=== PATIENT | female | born 2000 | race Caucasian/White ===

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

== ENCOUNTER 2021-06-15 11:29 | Day surgery (SDC) | payer MEDICAID, OTHER ==
[2021-06-13 16:08] VITALS: BMI 39.9
[~2021-06-15 11:29] MED LIST: LACTATED RINGERS 1,000 ML IV SCH; LIDOCAINE 1% (10MG/ML) FOR IV START INTRADERMA PRN
[2021-06-15 12:04] VITALS: TEMP 97.3
[2021-06-15] MEDS ORDERED: PROPOFOL 10 MG/ML 20 ML VIAL IV ONE (12:23)
[2021-06-15] MEDS ORDERED: LIDOCAINE 1% INJ 10MG/ML (20 ML MDV) ONE (12:23)
--- NOTE | 2021-06-15 12:33 | P.PCN ---
Date of Procedure: 06/15/21 Procedure(s) Performed: BRIEF HISTORY: Patient is a 21-year-old, pleasant, white female scheduled for an upper endoscopy as a part of evaluation of chronic persistent nausea for the last 18 months duration. She tried Prilosec 20 mg daily with no help. Recently was on Zofran as well as Phenergan with no help. She is hence scheduled for an upper endoscopy to evaluate further. PROCEDURE PERFORMED: Esophagogastroduodenoscopy with biopsy. PREOPERATIVE DIAGNOSIS: Chronic persistent nausea of 1-1/2 years duration. IV sedation per anesthesia. PROCEDURE: After informed consent was obtained, the patient was brought into the endoscopy unit. IV sedation was administered by Anesthesia under continuous monitoring. Initially the Olympus GIF-140 video endoscope was inserted into the mouth. Esophagus intubated without any difficulty. It was gradually advanced into the stomach and duodenum and carefully examined. The bulb and the second part of the duodenum appeared normal. Biopsies were done from the duodenum to rule out celiac disease. The scope at this time was withdrawn to the stomach, adequately insufflated with air, and upon careful examination, mucosa of the antrum, had erosions and biopsies were done from this area. The body, cardia and the fundus appeared normal. The scope was then withdrawn into the esophagus. The GE junction was located at 39 cm from the incisors. The esophagus appeared normal. There were no erosions or ulcerations seen and biopsies were done from the distal esophagus and the patient tolerated the procedure well. IMPRESSION: 1. Mild erosive antral gastritis. 2. No evidence of esophagitis or peptic ulcer disease. RECOMMENDATIONS: The findings of this examination were discussed with the patient well as her family. She was advised to follow with the biopsy results. In the meantime I suggested that she alternates Zofran with Phenergan and see if this helps with the nausea. She'll be seen in office in one month..
[2021-06-15 13:12] VITALS: BP 110/71; PULSE 67; RESP 16
== END 2021-06-15 13:36 | disposition home or self-care (01) ==
LOC: ORWHC2ENDO 11:29
PROVIDERS: ATTEND Internal Medicine Gastroenterology
DX: D72.820 Lymphocytosis (symptomatic) (principal); K29.50 Unspecified chronic gastritis without bleeding; F32.A Depression, unspecified; Z98.890 Other specified postprocedural states; Z79.899 Other long term (current) drug therapy
CPT/HCPCS: 81025; 88305; 43239; J2001; J2704

== ENCOUNTER 2021-08-29 13:16 | Emergency (ER) | payer MEDICAID, OTHER ==
[2021-08-29] MEDS ORDERED: dexAMETHasone 2 MG TAB PO STA (16:12)
[2021-08-29] MEDS ORDERED: FAMOTIDINE 20 MG TAB PO STA (16:12)
--- NOTE | 2021-08-29 16:17 | ED ---
General Adult HPI - General Chief complaint: Allergic Reaction Stated complaint: Allergic Reaction, EpiPen Used Time Seen by Provider: 08/29/21 16:00 Source: patient, RN notes reviewed, old records reviewed Mode of arrival: ambulatory Limitations: no limitations - History of Present Illness Initial comments: Patient is a 21-year-old female who presents emergency department over concern for an ALLERGIC reaction. She has a known ALLERGY to shellfish. States that while she was at work, she was in the same room shellfish and she began having a tingling and numb throat. She spoke with her boss and used one another EpiPen there. She took Benadryl. Presents emergency department for further evaluation. Currently is asymptomatic. Denied any nausea, vomiting, wheezing. Does have history of asthma. Denies any chest pain, shortness of breath, difficulty with swallowing or breathing at this time. Denies any fevers. On my evaluation, is been approximately 3 hours since onset of symptoms. I evaluated the patient when she was placed in a room. - Related Data Home Medications Medication Instructions Recorded Confirmed FLUoxetine HCL [PROzac] 20 mg PO HS 05/23/21 06/15/21 Promethazine HCl 12.5 mg PO BID PRN 05/23/21 06/15/21 Previous Rx's Medication Instructions Recorded EPINEPHrine (Auto Inject) [Epipen] 0.3 mg IM ONCE PRN #1 each 08/29/21 diphenhydrAMINE [Benadryl] 25 mg PO DAILY PRN 14 Days #14 08/29/21 capsule Allergies Allergy/AdvReac Type Severity Reaction Status Date / Time bee venom protein (honey bee) Allergy swelling,scratchy Verified 08/29/21 14:02 throat tree nut [Nut] Allergy scratchy Verified 08/29/21 14:02 throat seafood Allergy Unknown Uncoded 08/29/21 14:02 Review of Systems ROS Statement: Those systems with pertinent positive or pertinent negative responses have been documented in the HPI. Review of Systems: CONST: Denies fever EYES: Denies blurry vision ENT: Denies nasal congestion C/V: Denies Chest pain RESP: Denies shortness of breath GI: Denies abdominal pain : Denies dysuria SKIN: Denies rash. MSK: Denies joint pain. NEURO: Denies headache ROS Other: All systems not noted in ROS Statement are negative. Past Medical History Past Medical History: No Reported History History of Any Multi-Drug Resistant Organisms: MRSA Date of last positivie culture/infection: 05/14/17 MDRO Source:: RIGHT AXILLA Past Surgical History: Adenoidectomy, Tonsillectomy Past Anesthesia/Blood Transfusion Reactions: No Reported Reaction Past Psychological History: Anxiety Smoking Status: Current every day smoker Past Alcohol Use History: None Reported Past Drug Use History: None Reported General Exam - General Exam Comments Initial Comments: General: Appears in no acute distress. HEAD: Normal with no signs of head trauma. EYES: PERRLA, EOMI, conjunctiva normal, no discharge. ENT: Hearing grossly intact, normal oropharynx. No stridor. No intraoral swelling. Uvula is midline and within normal limits. No tongue swelling. RESPIRATORY: Clear breath sounds bilaterally. No wheezes, rales, or rhonchi. No hypoxia. No increased work of breathing. C/V: Regular rate and rhythm. S1 and S2 auscultated, no edema, peripheral pulses 2+ and intact throughout ABD: Abd is soft, nontender, nondistended EXT: Normal range of motion, no obvious deformity SKIN: No rashes or lesions observed on exposed skin. NEURO: Alert and oriented 4. No focal deficits. Limitations: no limitations Course Vital Signs 08/29/21 08/29/21 14:02 16:23 Temperature 98.2 F 97.7 F Pulse Rate 84 86 Respiratory 16 18 Rate Blood Pressure 161/81 130/81 O2 Sat by Pulse 100 98 Oximetry Medical Decision Making - Medical Decision Making Based on the patient's presentation and physical exam, she likely had an ALLERGIC reaction earlier today. She used an EpiPen. She is currently asymptomatic. It has been 3 hours approximately since symptom onset. Patient remains asymptomatic with normal vital signs, as well as normal exam. I believe it is safer to be discharged home at this time. I will provide her with a dose of steroids here in the department as well as famotidine. She'll be given a prescription for Benadryl as well as an EpiPen for home. She already has famotidine at home. She was in agreement with this plan. Strict return precautions were discussed. I will provide the patient with a prescription for EpiPen, Benadryl. I instructed the patient to follow up with their PCP in the next 3 days. I explained that the patient should return to the emergency department if they experience any worsening symptoms. Strict return precautions were discussed with the patient. The patient expressed understanding of these instructions. I answered all questions that the patient had. The patient was discharged home in good condition with their prescriptions and follow up information. Disposition Clinical Impression: Allergic reaction Disposition: HOME SELF-CARE Condition: Good Instructions (If sedation given, give patient instructions): Anaphylaxis (ED), Allergies (ED) Prescriptions: diphenhydrAMINE [Benadryl] 25 mg PO DAILY PRN 14 Days #14 capsule PRN Reason: Allergic Reaction RX: EPINEPHrine (Auto Inject) [Epipen] 0.3 mg IM ONCE PRN #1 each PRN Reason: Anaphylaxis Is patient prescribed a controlled substance at d/c from ED?: No Referrals: Pauline Monroe III, MD [Primary Care Provider] - 1-2 days Time of Disposition: 16:15
[2021-08-29 16:25] VITALS: BP 130/81; PULSE 86; RESP 18; TEMP 97.7
== END 2021-08-29 16:24 | disposition home or self-care (01) ==
LOC: EC 13:16
DX: T78.40XA Allergy, unspecified, initial encounter (principal); F17.200 Nicotine dependence, unspecified, uncomplicated; J45.909 Unspecified asthma, uncomplicated; Z91.030 Bee allergy status; Z91.018 Allergy to other foods; Z91.013 Allergy to seafood
CPT/HCPCS: 99283; J8540

== ENCOUNTER → 2022-08-02 | Outpatient (CLI) | payer OTHER ==
--- NOTE | 2022-08-02 08:16 | MR ---
EXAMINATION TYPE: MR thoracic spine wo con DATE OF EXAM: 08/02/2022 7:16 AM COMPARISON: No priors. INDICATION: Patient age:Female; 22 years old; Reason for study: S29.002D,M54.2,S39.012D. Mid back pain, lifting injury TECHNIQUE: Multi planar, multi sequence imaging was performed utilizing: T1-weighted, short-tau inver toshia recovery and T2-weighted of the thoracic spine. The patient was not given Gadolinium. IV Contrast: None FINDINGS: No abnormal bony edema on inversion recovery sequences. The thoracic vertebral bodies have preserved heights and alignment. The osseous structure have normal signal intensity. Thoracic spinal cord appea rs unremarkable. There is no evidence of extradural defects or central spinal canal narrowing at any thoracic vertebral body level. Intervertebral discs demonstrate normal signal intensity. No finding in the soft tissues to correlate patient's pain. IMPRESSION: No evidence for significant spinal canal or neural foraminal stenosis. No bony edema to suggest bony injury.
== END | disposition home or self-care (01) ==
LOC: RADMRIMAIN 06:36
PROVIDERS: ATTEND Emergency Medicine
DX: S29.002D Unspecified injury of muscle and tendon of back wall of thorax, subsequent encounter (principal); S39.012D Strain of muscle, fascia and tendon of lower back, subsequent encounter; M54.2 Cervicalgia
CPT/HCPCS: 72146

== ENCOUNTER → 2023-08-06 | Outpatient (CLI) | payer MEDICAID | END | disposition home or self-care (01) | LOC: LABWHC1 15:40 | PROVIDERS: ATTEND Obstetrics & Gynecology | DX: O26.899 Other specified pregnancy related conditions, unspecified trimester (principal); Z3A.00 Weeks of gestation of pregnancy not specified | CPT/HCPCS: 86850; 86900; 86901 ==

== ENCOUNTER 2023-10-22 06:00 | Inpatient (IN) | payer MEDICAID, OTHER ==
[2023-10-22] MEDS ORDERED: TRANEXAMIC 1,000 MG/100ML-NACL 1,000 MG in EMPTY BAG 1 BAG IV PRN (06:30)
[2023-10-22] MEDS ORDERED: CARBOPROST TROMETHAMINE 250 MCG/ML 1 ML AMP IM PRN (06:30)
[2023-10-22] MEDS ORDERED: miSOPROStoL 200 MCG TAB RECTAL PRN (06:30)
[2023-10-22] MEDS ORDERED: miSOPROStoL 200 MCG TAB PO PRN (06:30)
[2023-10-22] MEDS ORDERED: OXYTOCIN 10 UNIT/ML 1 ML VIAL IM PRN (06:30)
[2023-10-22] MEDS ORDERED: METHYLERGONOVINE 0.2 MG/ML 1 ML AMP IM PRN (06:30)
[2023-10-22] MEDS ORDERED: TERBUTALINE 1 MG/ML VIAL SQ PRN (06:30)
[2023-10-22 07:43] LABS: Basophils % (A) 0 %; Eosinophils # (A) 0.2 k/uL (0-0.7); Eosinophils % (A) 2 %; HCT 42.1 % (34.0-46.0); HGB 13.8 gm/dL (11.4-16.0); Lymphocytes # (A) 3.3 k/uL (1.0-4.8); Lymphocytes % (A) 27 %; MCH 27.6 pg (25.0-35.0); MCHC 32.7 g/dL (31.0-37.0); MCV 84.6 fL (80.0-100.0); Mean Platelet Volume 13.5; Monocytes # (A) 0.8 k/uL (0-1.0); Monocytes % (A) 7 %; Neutrophils # (A) 7.4 k/uL (1.3-7.7); Neutrophils % (A) 62 %; Platelet Count 170 k/uL (150-450); RBC 4.97 m/uL (3.80-5.40); WBC 11.9 k/uL (3.8-10.6)
[2023-10-22] MEDS: OXYTOCIN 30 UNITS/500 ML NS 30 UNIT in SALINE 1 500ML.BAG IV SCH (07:45)
[2023-10-22] MEDS: LACTATED RINGERS 1,000 ML IV SCH (07:56)
--- NOTE | 2023-10-22 08:58 | P.HPOB ---
History of Present Illness H&P Date: 10/22/23 Chief Complaint: Medical induction of labor Ms. Bryant is a 23 year old at 39 weeks and 1 day with EDC of 10/28/2023 by 17 week who presents today for medical induction of labor for insulin- controlled gestational diabetes. Her insulin regimen is Humalog 4u with breakf ast and 6u with lunch/dinner, Humalin 25u qHS. The patient had undergone twice weekly surveillance in the third trimester, which has been reassuring. The patient is also Rh negative, for which she received rhogam at 28 weeks. The fetus is estimated in the 43%ile based on a 32 week growth US. The patient also has mild persistent asthma, for which she uses albuterol several times weekly. work-up: blood type O negative, antibody screen negative, rubella immune, VDRL non-reactive, HBsAg negative, HIV negative, HCV Ab negative, gonorrhea negative, chlamydia negative, failed 1 and 3 hour glucose tests, GBS negative. s/p TDap. Past Medical History Past Medical History: No Reported History, Asthma Additional Past Medical History / Comment(s): gastrititis, depression, anxiety, gestational diabetes History of Any Multi-Drug Resistant Organisms: MRSA Date of last positivie culture/infection: 05/14/17 MDRO Source:: RIGHT AXILLA Past Surgical History: Adenoidectomy, Tonsillectomy Past Anesthesia/Blood Transfusion Reactions: No Reported Reaction Past Psychological History: Anxiety Smoking Status: Former smoker Past Alcohol Use History: None Reported Additional Past Alcohol Use History / Comment(s): history of vaping quit when she found out she was Past Drug Use History: None Reported Medications and Allergies Home Medications Medication Instructions Recorded Confirmed Type FLUoxetine HCL [PROzac] 20 mg PO HS 05/23/21 06/15/21 History Promethazine HCl 12.5 mg PO BID PRN 05/23/21 06/15/21 History EPINEPHrine (Auto Inject) [Epipen] 0.3 mg IM ONCE PRN #1 each 08/29/21 Rx diphenhydrAMINE [Benadryl] 25 mg PO DAILY PRN 14 Days #14 08/29/21 Rx capsule Cyclobenzaprine [Flexeril] 10 mg PO HS PRN #15 tab 06/14/22 Rx Allergies Allergy/AdvReac Type Severity Reaction Status Date / Time bee venom protein (honey bee) Allergy swelling,scratchy Verified 08/29/21 14:02 throat seafood Allergy Anaphylaxis Uncoded 10/22/23 06:30 Exam Vital Signs Temp Pulse Resp BP Pulse Ox 10/22/23 06:29 97.0 F L 102 H 16 125/65 98 Intake and Output 10/21/23 10/22/23 10/22/23 22:59 06:59 14:59 Other: Weight 105.687 kg Focused physical exam is performed. This is a healthy-appearing in no apparent distress. Breathing is non-labored. Abdomen is gravid and non-tender. Cervical exam is closed/long/high. Sterile speculum is used to placed a cooks catheter with 60cc in each balloon. Extremities non-tender and non-edematous. heart tones are Category I and tocometer is graphing contractions every 2- 4 minutes with Pitocin at 2. Results Result Diagrams: 10/22/23 06:45 Abnormal Lab Results - Last 24 Hours (Table) 10/22/23 Range/Units 06:45 WBC 11.9 H (3.8-10.6) k/uL Assessment and Plan Assessment: 23 year old at 39 weeks and 1 day here for mIOL for GDMA2 Plan: Admit, clear liquid diet, blood glucose q4h, cooks catheter for 6-12 hours, pitocin low dose while cooks in place, nubain prn pain. Continuous EFM and tocometer.
[2023-10-22] MEDS: NALBUPHINE 10 MG/ML (10 ML MDV) IV PRN (10:42)
[2023-10-22 11:56] LABS: Glucose,Whole Blood 82 mg/dL (70-110)
[2023-10-22 12:32] LABS: Large Platelets Present; RBC Morphology Normal
[2023-10-22 15:44] LABS: Glucose,Whole Blood 95 mg/dL (70-110)
[2023-10-22] MEDS ORDERED: SODIUM CHLORIDE 0.9% 250 ML BAG ONE (20:15)
[2023-10-22] MEDS ORDERED: ROPIVACAINE 5 MG/ML 30 ML VIAL ONE (20:15)
[2023-10-22] MEDS ORDERED: fentaNYL (PF) 50 MCG/ML 5 ML AMP ONE (20:15)
[2023-10-22] MEDS: LIDOCAINE 0.5% (PF) 5 MG/ML (50 ML SDV) SQ PRN (22:50)
[2023-10-22] MEDS ORDERED: LANOLIN CREAM 1 GM TUBE TOPICAL PRN (23:14)
[2023-10-22] MEDS ORDERED: diphenhydrAMINE 50 MG/ML 1 ML VIAL IVP PRN ×2 (23:14)
[2023-10-22] MEDS ORDERED: HYDROCORTISONE 2.5% RECTAL CREAM 30 GM TUBE RECTAL PRN (23:14)
[2023-10-22] MEDS ORDERED: diphenhydrAMINE 25 MG CAP PO PRN (23:14)
[2023-10-22] MEDS ORDERED: ZOLPIDEM 5 MG TAB PO PRN (23:14)
[2023-10-22] MEDS ORDERED: diphenhydrAMINE 50 MG CAP PO PRN (23:14)
[2023-10-22] MEDS ORDERED: ACETAMINOPHEN TAB 325 MG TAB PO PRN (23:14)
[2023-10-22] MEDS ORDERED: SIMETHICONE 80 MG CHEWABLE PO PRN (23:14)
--- NOTE | 2023-10-22 23:14 | P.PROBDLV ---
Vaginal Delivery Note - . Vaginal Delivery Note: DATE OF SERVICE: 10/22/2023 PROCEDURE: Normal Vaginal Delivery ATTENDING: Dr. Chanda Hernandez MD ESTIMATED BLOOD LOSS: 200 mL FINDINGS: VFI, Apgars 9/9. Weight 7 pounds and 12 ounces (3535 grams) PROCEDURE: Ms. Bryant is a 23 year old at 39 weeks and 1 day presenting to labor and delivery for medical induction of labor. The has been complicated by insulin-dependent gestational diabetes. For further details, please review the admitting H&P. Cooks catheter was inserted at 900 this morning with low-dose pitocin running. Cooks was removed at 1310 and AROM was undertaken, revealing clear amniotic fluid. Pitocin was titrated per protocol at this time. The patient received epidural anesthesia per her request. After the epidural, the patient became hypotensive with recurrent variables and late decelerations that did improve with fluid boluses and ephedrine. Still, the patient continued to have decelerations and Category II heart tones so the pitocin was temporarily discontinued. Once the pitocin was restarted, the patient quickly progressed to complete dilation at 2200. She pushed effectively with Category I to II heart tones. A viable female infant was delivered at 2254 with one tight nuchal cord reduced after delivery of the head. The was placed on the maternal abdomen and bulb suctioned. The was noted to be spontaneously crying. Cord was clamped and cut after a 60-second delay. The was handed off to the pediatric team. Placenta was delivered whole with gentle cord traction at 2257. Oxytocin was started to facilitate uterine tone. Uterine fundus was found to be firm and below the umbilicus upon fundal massage. Thorough examination of the cervix, vagina, periurethral area, and perineum revealed a hemostatic periurethral laceration and a second degree perineal laceration. The perineum was infiltrated with lidocaine and repaired with 2-0 Vicryl in the usual fashion. The patient is stable and allowed to begin the bonding process.
[2023-10-22] MEDS: IBUPROFEN 600 MG TAB PO PRN (23:30)
[2023-10-23] MEDS: BENZOCAINE/MENTHOL SPRAY 1 GM/SPRAY AEROSOL TOPICAL PRN (01:28)
[2023-10-23] MEDS: Rhogam IMMUNE GLOBULIN 1,500 UNIT/1 ML IM ONE (05:17)
[2023-10-23 08:06] LABS: Basophils % (A) 0 %; Eosinophils # (A) 0.1 k/uL (0-0.7); Eosinophils % (A) 1 %; HCT 35.9 % (34.0-46.0); HGB 11.7 gm/dL (11.4-16.0); Lymphocytes # (A) 2.6 k/uL (1.0-4.8); Lymphocytes % (A) 15 %; MCH 27.6 pg (25.0-35.0); MCHC 32.7 g/dL (31.0-37.0); MCV 84.2 fL (80.0-100.0); Mean Platelet Volume 13.3; Monocytes # (A) 1.1 k/uL (0-1.0); Monocytes % (A) 6 %; Neutrophils # (A) 13.1 k/uL (1.3-7.7); Neutrophils % (A) 76 %; Platelet Count 164 k/uL (150-450); RBC 4.26 m/uL (3.80-5.40); WBC 17.2 k/uL (3.8-10.6)
[2023-10-23] MEDS: SENNOSIDES-DOCUSATE SODIUM 1 EACH TAB PO SCH (08:21)
--- NOTE | 2023-10-23 09:01 | P.DS ---
Providers Date of admission: 10/22/23 06:05 Expected date of discharge: 10/23/23 Attending physician: Chanda Hernandez MD Primary care physician: Stated None Hospital Course: Ms. Bryant is a 23 year old now PPD#1 s/p normal vaginal delivery after medical induction of labor for insulin-dependent gestational diabetes. She had cervical ripening with a cooks catheter and then AROM with pitocin. She had a normal vaginal delivery with a second degree perineal laceration. The patient is doing well this morning and had no acute events overnight. She has no complaints this morning. She reports minimal lochia, passing flatus, voiding without difficulty, ambulating, and eating/drinking without nausea or vomiting. Infant doing well at bedside. She denies chest pain, shortness of breathing, fevers, or chills overnight. She denies pain or swelling in the legs. She requests discharged home today. restrictions are reviewed with the patient including pelvic rest for 6 weeks. The patient is encouraged to call the office if she experiences any heavy bleeding, foul-smelling discharge, breast complaints, or any if she has any other concerns. She will follow up in the office in 6 weeks for exam. She plans to use Motrin and Tylenol OTC as needed. All questions are answered. Assessment: 23 year old PPD#1 s/p normal vaginal delivery Patient Condition at Discharge: Good Plan - Discharge Summary New Discharge Prescriptions: No Action Promethazine HCl 12.5 mg PO BID PRN PRN Reason: Nausea EPINEPHrine (Auto Inject) [Epipen] 0.3 mg IM ONCE PRN #1 each PRN Reason: Anaphylaxis FLUoxetine HCL [PROzac] 20 mg PO HS diphenhydrAMINE [Benadryl] 25 mg PO DAILY PRN 14 Days #14 capsule PRN Reason: Allergic Reaction Cyclobenzaprine [Flexeril] 10 mg PO HS PRN #15 tab PRN Reason: Spasms Discharge Medication List FLUoxetine HCL [PROzac] 20 mg PO HS 05/23/21 [History] Promethazine HCl 12.5 mg PO BID PRN 05/23/21 [History] EPINEPHrine (Auto Inject) [Epipen] 0.3 mg IM ONCE PRN #1 each 08/29/21 [Rx] diphenhydrAMINE [Benadryl] 25 mg PO DAILY PRN 14 Days #14 capsule 05/16/22 [Rx] Cyclobenzaprine [Flexeril] 10 mg PO HS PRN #15 tab 06/14/22 [Rx] Follow up Appointment(s)/Referral(s): Chanda Hernandez MD [STAFF PHYSICIAN] - 12/03/23 11:30 am Activity/Diet/Wound Care/Special Instructions: Instructions 1. Do not begin any exercise program for 3 weeks. 2. Do not resume sexual relations for 6 weeks or longer if uncomfortable. 3. You may take tub baths or showers at any time. 4. You may use tampons if desired after 6 weeks. 5. Keep any areas repaired with stitches clean and dry. 6. If you are not nursing, wear a good fitting, supportive bra during the day and limit fluid intake for at least 1 week to prevent breast engorgement. 7. Call the office, , within the next week to make appointment for your 6 week checkup if it has not already been made. 8. Report any of the following occurrences to the doctor promptly: a. Heavy, excessive bleeding b. Chills, fever c. Burning or frequency of urination d. Pain or redness and breasts if nursing e. Increasing pain or swelling of vulva (stitches). In addition to the above instructions, the following additional should be followed: 1. No heavy lifting or straining (exercising) until after 6 week checkup. 2. Keep abdominal incision clean and dry: You may wear a dressing if more comfortable. 3. Make office appointment for 2 weeks after delivery date. Discharge Disposition: HOME SELF-CARE
[2023-10-24 08:27] VITALS: BP 125/84; PULSE 85; RESP 16; TEMP 98
== END 2023-10-24 10:00 | disposition home or self-care (01) | DRG 807 ==
LOC: 4FBP 06:05
PROVIDERS: ADMIT Obstetrics & Gynecology; ATTEND Obstetrics & Gynecology
PROC: 10E0XZZ Delivery of Products of Conception, External Approach (ICD-10-PCS; principal; 2023-10-22)
PROC: 0KQM0ZZ Repair Perineum Muscle, Open Approach (ICD-10-PCS; 2023-10-22)
PROC: 3E033VJ Introduction of Other Hormone into Peripheral Vein, Percutaneous Approach (ICD-10-PCS; 2023-10-22)
PROC: 10907ZC Drainage of Amniotic Fluid, Therapeutic from Products of Conception, Via Natural or Artificial Opening (ICD-10-PCS; 2023-10-22)
PROC: 0U7C7ZZ Dilation of Cervix, Via Natural or Artificial Opening (ICD-10-PCS; 2023-10-22)
PROC: 3E0334Z Introduction of Serum, Toxoid and Vaccine into Peripheral Vein, Percutaneous Approach (ICD-10-PCS; 2023-10-22)
DX: O24.424 Gestational diabetes mellitus in childbirth, insulin controlled (principal); Z37.0 Single live birth; O69.81X0 Labor and delivery complicated by cord around neck, without compression, not applicable or unspecified; F41.9 Anxiety disorder, unspecified; J45.30 Mild persistent asthma, uncomplicated; O70.1 Second degree perineal laceration during delivery; O71.82 Other specified trauma to perineum and vulva; O99.344 Other mental disorders complicating childbirth; O76 Abnormality in fetal heart rate and rhythm complicating labor and delivery; O99.52 Diseases of the respiratory system complicating childbirth; Z3A.39 39 weeks gestation of pregnancy; Z67.91 Unspecified blood type, Rh negative; Z87.891 Personal history of nicotine dependence; Z91.030 Bee allergy status; Z91.013 Allergy to seafood; Z79.4 Long term (current) use of insulin
CPT/HCPCS: 85025; 85461; 86850; 86900; 86901